=== PATIENT | male | born 1995 | race Caucasian/White ===

== ENCOUNTER 2020-10-09 08:58 | Emergency (ER) | payer SELFPAY ==
[~2020-10-09] VITALS: Ht 175.3 cm; Wt 68.0 kg
[2020-10-09 09:10] VITALS: BP 97/55
--- NOTE | 2020-10-09 09:10 | NUR ---
ED Nurse Note: Pt walked in to ED from home c/o left thumb laceration from a razor blade x1 hr ago. Bleeding is controlled by pressure. Last tetanus shot was 8 years ago. AAOx4, verbally repsonisve. ERMD at bedside.
[2020-10-09] MEDS ORDERED: Tetanus/Diptheria/Pertussis IM ONE ×2 (09:19→09:30)
--- NOTE | 2020-10-09 09:25 | Emergency Room Report ---
History of Present Illness General Chief Complaint: Laceration Source: Patient Present Illness HPI Disclaimer: Please note that this report is being documented using DRAGON technology. This can lead to erroneous entry secondary to incorrect interpretation by the dictating instrument. HPI: 25-year-old male presents for laceration of the left thumb. Patient states he cut himself with a razor accidentally. His last tetanus was 8 years ago. Pain is about 5 out of 10 worse with palpation and nonradiating. No other complaints at this time. Allergies: Coded Allergies: No Known Allergies (Unverified , 10/09/20) COVID-19 Screening Contact w/high risk pt: No Experienced COVID-19 symptoms?: No COVID-19 Testing performed FLOOR CARE TECHNICIAN: No Patient History Reviewed Nursing Documentation: PMH: Agreed; PSxH: Agreed Nursing Documentation-PMH Past Medical History: No Stated History Review of Systems All Other Systems: negative except mentioned in HPI Physical Exam Vital Signs Date Time Temp Pulse Resp B/P (MAP) Pulse Ox O2 Delivery O2 Flow Rate FiO2 10/09/20 09:05 98.2 84 18 97/55 (69) 98 Room Air Sp02 EP Interpretation: reviewed, normal General Appearance: well appearing, no apparent distress Head: normocephalic, atraumatic Eyes: bilateral eye PERRL, bilateral eye EOMI ENT: hearing grossly normal, moist mucus membranes Neck: full range of motion, supple Respiratory: lungs clear, normal breath sounds, no rhonchi, no respiratory distress, no retraction, no wheezing Cardiovascular #1: normal peripheral pulses, regular rate, rhythm, no murmur Gastrointestinal: non tender, soft, non-distended, no guarding Musculoskeletal: other - Superficial laceration noted through the left thumb, nailbed involvement, sensation and motor intact. Laceration length approximately 2 cm Neurologic: alert, oriented x3, no focal defects Skin: normal color, warm/dry Procedures Laceration/Wound Repair Laceration/Wound Repair : Consent: Verbal Wound Location: upper extremity Wound's Depth, Shape: superficial, linear Wound Explored: clean Betadine Prep?: Yes Wound Debrided: None Wound Repaired With: Dermabond Sterile Dressing Applied?: Yes Complications: None Medical Decision Making Diagnostic Impression: Primary Impression: Laceration of left thumb ER Course MDM: Differential diagnosis included thumb laceration less likely tendon injury or serious neurovascular injury. Patient was in no acute distress and nontoxic- appearing. Clinical course-laceration closed by me. Tetanus updated. Patient stable for discharge. Will follow up with PMD and given return precautions. Care instructions given. L Last Vital Signs Date Time Temp Pulse Resp B/P (MAP) Pulse Ox O2 Delivery O2 Flow Rate FiO2 10/09/20 09:10 98.2 84 18 97/55 98 Room Air Status: improved Disposition: HOME, SELF-CARE Condition: Improved Lyle Wiggins M.D. Oct 09, 2020 09:25
--- NOTE | 2020-10-09 09:34 | NUR ---
ED Nurse Note: Pt cleared by ERMD for discharge. DC instructions was given and explained to pt and verbalized understanding of teachings. All medical deviecs such as ID band removed. Pt is AAO x4, ambulatory and left with all personal belongings.
== END 2020-10-09 09:34 | disposition home or self-care (01) ==
LOC: EMR 09:15
DX: S61.012A Laceration without foreign body of left thumb without damage to nail, initial encounter (principal); W26.8XXA Contact with other sharp object(s), not elsewhere classified, initial encounter; Y93.9 Activity, unspecified; Y92.9 Unspecified place or not applicable
CPT/HCPCS: 90471; 90715; 99282